=== PATIENT | male | born 1940 | race Caucasian/White ===

== ENCOUNTER 2019-10-13 04:11 | Inpatient (IN) ==
[2019-10-13 05:09] LABS: Hemoglobin 8.3 g/dL (12.9-16.9); Immature Granulocytes % 0.3 % (0-4)
[2019-10-13 05:11] LABS: Lymphocytes # 0.5 K/mcL (0.6-4.6); Lymphocytes % 13.8 %; Mean Corpuscular HGB Conc 27.7 g/dL (31.6-35.5); Mean Corpuscular Hemoglobin 23.3 pg (28.0-33.3); Mean Corpuscular Volume 84.3 fL (83.0-100.0); Mean Platelet Volume 10.5 fL (9.4-12.4); Monocytes # 0.7 K/mcL (0.0-1.3); Monocytes % 17.9 %; Neutrophils # 2.6 K/mcL (1.6-8.9); Platelet Count 289 K/mcL (140-400); Red Blood Count 3.56 M/mcL (4.19-5.50); White Blood Count 3.9 K/mcL (4.3-11.1)
[2019-10-13 05:30] LABS: Albumin 3.9 g/dL (3.5-5.7); Bilirubin,Direct 0.1 mg/dL (0.0-0.2); Bilirubin,Indirect 0.3 mg/dL (0.0-1.0); Bilirubin,Total 0.4 mg/dL (0.3-1.0); Globulin 3.9 g/dL (2.4-3.5); Potassium 3.6 mEq/L (3.5-5.1); Total Protein 7.8 g/dL (6.4-8.9)
[2019-10-13 05:31] LABS: Anisocytosis 1+ (Not Present); Hypochromasia Present (Not Present)
[2019-10-13 05:32] LABS: Platelet Estimate Normal (Normal)
[2019-10-13 07:01] LABS: Bacteria,Urine Few per hpf (None-Few); Bilirubin,Urine Negative (Negative); Blood,Urine Negative (Negative); Clarity,Urine Clear (Clear); Color,Urine Yellow (Yellow); Glucose,Urine (UA) Normal (Normal); Hyaline Casts,Urine Many per lpf (None Seen); Ketones,Urine Negative (Negative); Leukocyte Esterase,Urine Negative (Negative); Mucus,Urine Many per lpf (None-Few); Nitrite,Urine Negative (Negative); Protein,Urine 70 mg/dL (Neg-Trace); RBC,Urine 0-3 per hpf (0-3); Squamous Epithelial Cell,Urine Few per hpf (None-Few); Urobilinogen,Urine Normal (Normal); WBC,Urine 0-3 per hpf (0-3)
[2019-10-13] MEDS ORDERED: *HR* Promethazine 25 MG/ML VIAL IVP PRN (09:11)
[2019-10-13] MEDS ORDERED: Naloxone 0.4 MG/ML INJ IVP PRN (09:11)
[2019-10-13] MEDS ORDERED: *HR* Dextrose 50 % in Water (Vial) 50 ML VIAL IVP PRN (09:36)
[2019-10-13] MEDS ORDERED: D5% in Water 1,000 ML IVC PRN (09:36)
[2019-10-13] MEDS ORDERED: Dextrose Gel 15 GM/37.5 ML TUBE PO PRN ×2 (09:36)
[2019-10-13 10:05] LABS: Hematocrit 27.4 % (37.5-50.1); Hemoglobin 7.7 g/dL (12.9-16.9)
[2019-10-13 10:06] LABS: INR 2.9; Prothrombin Time 33.2 Seconds (9.4-12.1)
[2019-10-13 10:21] LABS: Magnesium 2.1 mg/dL (1.6-2.6); Phosphorous 2.9 mg/dL (2.7-4.5)
[2019-10-13] MEDS: Insulin LISPRO 300 UNITS/3 ML VIAL SQ SCH ×3 (14:02→23:56)
[2019-10-13] MEDS: 0.9 % Sodium Chloride 1,000 ML IVC SCH ×2 (14:03→21:49)
[2019-10-13] MEDS ORDERED: Chloraseptic Spray 177 ML BOTTLE MM PRN (16:27)
[2019-10-13 17:52] LABS: Hematocrit 27.8 % (37.5-50.1); Hemoglobin 7.7 g/dL (12.9-16.9)
[2019-10-14 02:33] LABS: Hemoglobin 7.2 g/dL (12.9-16.9); Mean Platelet Volume 10.7 fL (9.4-12.4)
[2019-10-14 02:34] LABS: Hematocrit 25.8 % (37.5-50.1); Mean Corpuscular HGB Conc 27.9 g/dL (31.6-35.5); Mean Corpuscular Hemoglobin 23.5 pg (28.0-33.3); Platelet Count 247 K/mcL (140-400); Red Blood Count 3.07 M/mcL (4.19-5.50); White Blood Count 3.4 K/mcL (4.3-11.1)
[2019-10-14 02:37] LABS: BUN/Creatinine Ratio 22 (6-26); Blood Urea Nitrogen 26 mg/dL (8-23); Calcium 7.9 mg/dL (8.6-10.3); Carbon Dioxide 27 mEq/L (23-29); Chloride 103 mEq/L (98-107); Glucose 108 mg/dL (70-105); Osmolality,Calculated 293 (280-300); Potassium 2.9 mEq/L (3.5-5.1); Sodium 139 mEq/L (136-145); eGFR For African Americans > 60 (> 60); eGFR For Non-African Americans > 60 (> 60)
[2019-10-14] MEDS ORDERED: Potassium Chloride 40 MEQ, Lidocaine 1% 2 ML in 0.9 % Sodium Chloride 500 ML IVPB ONE (03:38)
[2019-10-14] MEDS: Calcium Gluconate 1gm/50mL 1 GM/50 ML BAG IVPB SCH ×2 (04:36→05:52)
[2019-10-14] MEDS: Insulin LISPRO 300 UNITS/3 ML VIAL SQ SCH ×3 (06:07→18:54)
[2019-10-14 06:30] LABS: Hematocrit 25.7 % (37.5-50.1); Hemoglobin 7.2 g/dL (12.9-16.9)
[2019-10-14] MEDS: 0.9 % Sodium Chloride w KCl 40 MEQ/1,000 ML MLS IVC SCH (09:19)
[2019-10-14 10:11] LABS: Iron < 10 mcg/dL (65-175); Thyroid Stimulating Hormone 1.817 mcIU/mL (0.340-5.600); Transferrin 239 mg/dL (203-362)
[2019-10-14 10:20] LABS: Folate 19.3 ng/mL (3.0-16.0)
[2019-10-14] MEDS ORDERED: *HR* Labetalol 20 MG/4 ML SYRINGE IVP PRN (10:27)
[2019-10-14] MEDS: Ondansetron 4 MG/2 ML VIAL IVP PRN (11:55)
[2019-10-14 12:13] LABS: Hematocrit 26.2 % (37.5-50.1); Hemoglobin 7.3 g/dL (12.9-16.9)
[2019-10-14 12:21] LABS: INR 3.2; Prothrombin Time 36.8 Seconds (9.4-12.1)
[2019-10-14 12:33] LABS: BUN/Creatinine Ratio 24 (6-26); Blood Urea Nitrogen 24 mg/dL (8-23); Calcium 8.6 mg/dL (8.6-10.3); Carbon Dioxide 29 mEq/L (23-29); Chloride 106 mEq/L (98-107); Glucose 103 mg/dL (70-105); Osmolality,Calculated 302 (280-300); Potassium 3.4 mEq/L (3.5-5.1); Sodium 144 mEq/L (136-145); eGFR For African Americans > 60 (> 60); eGFR For Non-African Americans > 60 (> 60)
[2019-10-14] MEDS: *HR* Metoprolol 5 MG/5 ML VIAL IVP SCH ×2 (14:51→19:05)
[2019-10-14] MEDS: Iron Sucrose Complex 200 MG in 0.9 % Sodium Chloride 100 ML IVPB SCH (16:52)
[2019-10-14] MEDS: Pantoprazole 40 MG VIAL IVP SCH (19:05)
[2019-10-15] MEDS: Insulin LISPRO 300 UNITS/3 ML VIAL SQ SCH ×2 (00:10→05:44)
[2019-10-15] MEDS: *HR* Metoprolol 5 MG/5 ML VIAL IVP SCH ×2 (00:12→06:03)
[2019-10-15] MEDS: 0.9 % Sodium Chloride w KCl 40 MEQ/1,000 ML MLS IVC SCH (00:12)
[2019-10-15 02:03] LABS: Basophils % 0.2 %; Eosinophils # 0.1 K/mcL (0.0-0.6); Eosinophils % 1.6 %; Hematocrit 27.9 % (37.5-50.1); Hemoglobin 7.5 g/dL (12.9-16.9); Immature Granulocytes % 0.4 % (0-4); Lymphocytes # 0.7 K/mcL (0.6-4.6); Mean Corpuscular HGB Conc 26.9 g/dL (31.6-35.5); Mean Corpuscular Hemoglobin 23.4 pg (28.0-33.3); Mean Corpuscular Volume 86.9 fL (83.0-100.0); Mean Platelet Volume 10.2 fL (9.4-12.4); Monocytes # 0.8 K/mcL (0.0-1.3); Monocytes % 15.8 %; Neutrophils # 3.5 K/mcL (1.6-8.9); Platelet Count 257 K/mcL (140-400); Red Blood Count 3.21 M/mcL (4.19-5.50); Red Cell Distribution Width 16.3 % (11.5-14.5)
[2019-10-15 02:04] LABS: White Blood Count 5.1 K/mcL (4.3-11.1)
[2019-10-15 02:21] LABS: BUN/Creatinine Ratio 24 (6-26); Blood Urea Nitrogen 25 mg/dL (8-23); Calcium 8.7 mg/dL (8.6-10.3); Carbon Dioxide 29 mEq/L (23-29); Chloride 110 mEq/L (98-107); Glucose 91 mg/dL (70-105); Magnesium 2.4 mg/dL (1.6-2.6); Osmolality,Calculated 308 (280-300); Potassium 3.7 mEq/L (3.5-5.1); Sodium 147 mEq/L (136-145); eGFR For African Americans > 60 (> 60); eGFR For Non-African Americans > 60 (> 60)
[2019-10-15 02:54] LABS: Hypochromasia Present (Not Present); Platelet Estimate Normal (Normal)
[2019-10-15] MEDS: Pantoprazole 40 MG VIAL IVP SCH ×2 (06:03→18:22)
[2019-10-15] MEDS: Ringers Solution, Lactated 1,000 ML IVC SCH ×2 (08:35→22:18)
[2019-10-15] MEDS: Iron Sucrose Complex 200 MG in 0.9 % Sodium Chloride 100 ML IVPB SCH (11:05)
[2019-10-15] MEDS: *HR* Amiodarone 200 MG TABLET PO SCH (12:05)
[2019-10-15] MEDS: Aspirin Enteric Coated 81 MG Tablet PO SCH (12:07)
[2019-10-15] MEDS: Metoprolol XL (24 HR) Succ 50 MG TAB.ER.24H PO SCH (12:08)
[2019-10-16 02:10] LABS: Hemoglobin 7.4 g/dL (12.9-16.9)
[2019-10-16 02:12] LABS: Basophils % 0.2 %; Eosinophils # 0.2 K/mcL (0.0-0.6); Eosinophils % 3.7 %; Hematocrit 27.6 % (37.5-50.1); Immature Granulocytes % 0.7 % (0-4); Lymphocytes # 0.7 K/mcL (0.6-4.6); Lymphocytes % 16.3 %; Mean Corpuscular HGB Conc 26.8 g/dL (31.6-35.5); Mean Corpuscular Hemoglobin 22.6 pg (28.0-33.3); Mean Corpuscular Volume 84.1 fL (83.0-100.0); Mean Platelet Volume 9.9 fL (9.4-12.4); Monocytes # 0.6 K/mcL (0.0-1.3); Monocytes % 15.5 %; Neutrophils # 2.6 K/mcL (1.6-8.9); Nucleated Red Blood Cells 0.7 /100 WBC (0); Platelet Count 259 K/mcL (140-400); Red Blood Count 3.28 M/mcL (4.19-5.50); Red Cell Distribution Width 16.4 % (11.5-14.5); Segmented Neutrophils % 63.6 %; White Blood Count 4.1 K/mcL (4.3-11.1)
[2019-10-16 02:20] LABS: INR 3.7; Prothrombin Time 42.6 Seconds (9.4-12.1)
[2019-10-16 02:26] LABS: BUN/Creatinine Ratio 23 (6-26); Blood Urea Nitrogen 19 mg/dL (8-23); Calcium 8.5 mg/dL (8.6-10.3); Carbon Dioxide 27 mEq/L (23-29); Chloride 106 mEq/L (98-107); Glucose 112 mg/dL (70-105); Magnesium 1.9 mg/dL (1.6-2.6); Osmolality,Calculated 293 (280-300); Potassium 3.6 mEq/L (3.5-5.1); Sodium 140 mEq/L (136-145); eGFR For African Americans > 60 (> 60); eGFR For Non-African Americans > 60 (> 60)
[2019-10-16 02:38] LABS: Hypochromasia Present (Not Present); Platelet Estimate Normal (Normal)
[2019-10-16] MEDS: Pantoprazole 40 MG VIAL IVP SCH ×2 (04:54→17:18)
[2019-10-16] MEDS: Cholecalciferol (D-3) 1,000 UNIT (25MCG) TABLET PO SCH (08:40)
[2019-10-16] MEDS: DilTIAZem CD (24hr) 180 MG CAP.ER.24H PO SCH (08:40)
[2019-10-16] MEDS: Metoprolol XL (24 HR) Succ 50 MG TAB.ER.24H PO SCH (08:40)
[2019-10-16] MEDS: Aspirin Enteric Coated 81 MG Tablet PO SCH (08:40)
[2019-10-16] MEDS: Iron Sucrose Complex 200 MG in 0.9 % Sodium Chloride 100 ML IVPB SCH (08:40)
[2019-10-16] MEDS: *HR* Amiodarone 200 MG TABLET PO SCH (08:41)
[2019-10-16] MEDS: Ringers Solution, Lactated 1,000 ML IVC SCH (11:11)
[2019-10-16 17:42] LABS: Hematocrit 30.2 % (37.5-50.1); Hemoglobin 7.9 g/dL (12.9-16.9)
[2019-10-16] MEDS: 0.9 % Sodium Chloride w KCl 40 MEQ/1,000 ML MLS IVC SCH (21:24)
[2019-10-17 02:32] LABS: Hemoglobin 7.4 g/dL (12.9-16.9)
[2019-10-17 02:33] LABS: Hematocrit 27.5 % (37.5-50.1); Mean Corpuscular HGB Conc 26.9 g/dL (31.6-35.5); Mean Corpuscular Hemoglobin 22.5 pg (28.0-33.3); Mean Corpuscular Volume 83.6 fL (83.0-100.0); Mean Platelet Volume 9.9 fL (9.4-12.4); Platelet Count 277 K/mcL (140-400); Red Blood Count 3.29 M/mcL (4.19-5.50); Red Cell Distribution Width 16.5 % (11.5-14.5); White Blood Count 5.9 K/mcL (4.3-11.1)
[2019-10-17 02:40] LABS: INR 3.8
[2019-10-17 02:44] LABS: Prothrombin Time 43.7 Seconds (9.4-12.1)
[2019-10-17 02:56] LABS: BUN/Creatinine Ratio 17 (6-26); Blood Urea Nitrogen 16 mg/dL (8-23); Calcium 8.4 mg/dL (8.6-10.3); Carbon Dioxide 25 mEq/L (23-29); Chloride 106 mEq/L (98-107); Glucose 97 mg/dL (70-105); Osmolality,Calculated 291 (280-300); Potassium 3.6 mEq/L (3.5-5.1); Sodium 140 mEq/L (136-145); eGFR For African Americans > 60 (> 60); eGFR For Non-African Americans > 60 (> 60)
[2019-10-17] MEDS: Pantoprazole 40 MG VIAL IVP SCH ×2 (06:17→16:46)
[2019-10-17] MEDS: Aspirin Enteric Coated 81 MG Tablet PO SCH (08:23)
[2019-10-17] MEDS: Cholecalciferol (D-3) 1,000 UNIT (25MCG) TABLET PO SCH (08:23)
[2019-10-17] MEDS: Metoprolol XL (24 HR) Succ 50 MG TAB.ER.24H PO SCH (08:23)
[2019-10-17] MEDS: Iron Sucrose Complex 200 MG in 0.9 % Sodium Chloride 100 ML IVPB SCH (08:23)
[2019-10-17] MEDS: *HR* Amiodarone 200 MG TABLET PO SCH (08:24)
[2019-10-17] MEDS: DilTIAZem CD (24hr) 180 MG CAP.ER.24H PO SCH (08:24)
[2019-10-17] MEDS: polyethylene glycoL 3350 17 GM POWD.PACK PO SCH (11:50)
[2019-10-18] MEDS: Ondansetron 4 MG/2 ML VIAL IVP PRN (01:21)
[2019-10-18 01:54] LABS: Hemoglobin 7.6 g/dL (12.9-16.9); Red Cell Distribution Width 16.7 % (11.5-14.5)
[2019-10-18 01:55] LABS: Eosinophils # 0.1 K/mcL (0.0-0.6); Hematocrit 27.9 % (37.5-50.1); Mean Corpuscular HGB Conc 27.2 g/dL (31.6-35.5); Mean Corpuscular Hemoglobin 22.5 pg (28.0-33.3); Mean Corpuscular Volume 82.5 fL (83.0-100.0); Mean Platelet Volume 10.2 fL (9.4-12.4); Nucleated Red Blood Cells 0.7 /100 WBC (0); Platelet Count 285 K/mcL (140-400); Red Blood Count 3.38 M/mcL (4.19-5.50); White Blood Count 5.5 K/mcL (4.3-11.1)
[2019-10-18 02:01] LABS: INR 3.1; Prothrombin Time 35.3 Seconds (9.4-12.1)
[2019-10-18 02:25] LABS: Hypochromasia Present (Not Present); Lymphocytes # 1.3 K/mcL (0.6-4.6); Monocytes # 0.3 K/mcL (0.0-1.3); Neutrophils # 3.7 K/mcL (1.6-8.9); Platelet Estimate Normal (Normal); Smudge Cells Present (Not Present)
[2019-10-18] MEDS: Pantoprazole 40 MG VIAL IVP SCH (06:32)
[2019-10-18] MEDS: Aspirin Enteric Coated 81 MG Tablet PO SCH (10:12)
[2019-10-18] MEDS: DilTIAZem CD (24hr) 180 MG CAP.ER.24H PO SCH (10:12)
[2019-10-18] MEDS: polyethylene glycoL 3350 17 GM POWD.PACK PO SCH (10:12)
[2019-10-18] MEDS: Metoprolol XL (24 HR) Succ 50 MG TAB.ER.24H PO SCH (10:12)
[2019-10-18] MEDS: *HR* Amiodarone 200 MG TABLET PO SCH (10:12)
[2019-10-18] MEDS: Iron Sucrose Complex 200 MG in 0.9 % Sodium Chloride 100 ML IVPB SCH (10:12)
[2019-10-18] MEDS: Cholecalciferol (D-3) 1,000 UNIT (25MCG) TABLET PO SCH (10:13)
[2019-10-18 10:39] VITALS: BP 117/74
== END 2019-10-18 14:44 | disposition home health service (06) | DRG 388 ==
LOC: 3ANU 04:11 → EMEROOARM 04:11 → SUATTDRO 07:28 → 3ANU 08:03 → SUATTDRO 10-14 11:31
PROVIDERS: ADMIT Family Medicine; ATTEND Internal Medicine